=== PATIENT | female | born 1980 | race Caucasian/White ===

== ENCOUNTER 2022-11-16 20:06 | Emergency (ER) | payer BC ==
--- NOTE | 2022-11-16 20:21 | ED ---
General Adult HPI - General Source: patient Mode of arrival: ambulatory Limitations: no limitations <Doni Olivo - Last Filed: 11/16/22 20:20> - General Source: patient, RN notes reviewed Mode of arrival: ambulatory Limitations: no limitations <Vanessa Alvarez - Last Filed: 11/16/22 23:02> - General Chief complaint: Skin/Abscess/Foreign Body Stated complaint: cyst Time Seen by Provider: 11/16/22 20:20 - History of Present Illness Initial comments: 42-year-old female presenting with chief complaint of a labial cyst. Symptoms present since Thursday. (Doni Olivo) 42-year-old female presents emergency department chief complaint abscess on genital area. She states that she noticed this on Thursday but it has become increasingly painful over the last 2 days. She states that it is painful to sit. She has not noticed any drainage from the area. Denies fever, chills, nausea, vomiting. (Vanessa Alvarez) - Related Data Previous Rx's Medication Instructions Recorded Cephalexin [Keflex] 500 mg PO Q12HR 7 Days #14 cap 11/16/22 Sulfamethox-Tmp 800-160Mg [Bactrim 1 each PO Q12HR #14 tab 11/16/22 Ds] Allergies Allergy/AdvReac Type Severity Reaction Status Date / Time Penicillins AdvReac Rash/Hives Verified 11/16/22 20:22 Review of Systems ROS Other: All systems not noted in ROS Statement are negative. <Doni Olivo - Last Filed: 11/16/22 20:20> ROS Other: All systems not noted in ROS Statement are negative. <Vanessa Alvarez - Last Filed: 11/16/22 23:02> ROS Statement: Those systems with pertinent positive or pertinent negative responses have been documented in the HPI. General Exam <Doni Olivo - Last Filed: 11/16/22 20:20> Limitations: no limitations General appearance: alert, in no apparent distress Head exam: Present: atraumatic, normocephalic, normal inspection Eye exam: Present: normal appearance ENT exam: Present: normal exam, mucous membranes moist Respiratory exam: Present: normal lung sounds bilaterally. Absent: respiratory distress, wheezes, rales, rhonchi, stridor Cardiovascular Exam: Present: regular rate, normal rhythm, normal heart sounds. Absent: systolic murmur, diastolic murmur, rubs, gallop, clicks External exam: Present: swelling, other (abscess to left labial area ) Extremities exam: Present: normal inspection Back exam: Present: normal inspection Neurological exam: Present: alert, oriented X3 Psychiatric exam: Present: normal affect, normal mood Skin exam: Present: warm, dry, intact, normal color. Absent: rash <Vanessa Alvarez - Last Filed: 11/16/22 23:02> - General Exam Comments Initial Comments: Visual Physical Exam Vital signs reviewed General: Well-appearing, nontoxic, no acute distress. Head: Normocephalic, atraumatic Eyes: PERRLA, EOMI ENT: Airway patent Chest: Nonlabored breathing Skin: No visual rash, normal skin tone Neuro: Alert and oriented 3 Musculoskeletal: No gross abnormalities (Doni Olivo) Course Vital Signs 11/16/22 20:20 Temperature 97.7 F Pulse Rate 96 Respiratory 18 Rate Blood Pressure 179/104 O2 Sat by Pulse 100 Oximetry Procedures - Incision & Drainage Consent Obtained: verbal consent Site: vulva/vagina Anesthetic Used: lidocaine 1% I&D Cleaning Method: Alcohol Wipe Sterile Field Used?: No I&D Drainage Obtained: Pus, Blood Loculation Noted: probing needed to break Culture Obtained?: Yes <Vanessa Alvarez - Last Filed: 11/16/22 23:02> Medical Decision Making <Vanessa Alvarez - Last Filed: 11/16/22 23:02> - Medical Decision Making Was pt. sent in by a medical professional or institution (AMRITA Mendoza, RESEARCH PHYSIOLOGIST, urgent care, hospital, or halfway...) When possible be specific @ -[No] Did you speak to anyone other than the patient for history (EMS, parent, family, police, friend...)? What history was obtained from this source @ -[No] Did you review nursing and triage notes (agree or disagree)? Why? @ -[I reviewed and agree with nursing and triage notes] Were old charts reviewed (outside hosp., previous admission, EMS record, old EKG, old radiological studies, urgent care reports/EKG's, halfway records)? Report findings @ -[No old charts were reviewed] Differential Diagnosis (chest pain, altered mental status, abdominal pain women, abdominal pain men, vaginal bleeding, weakness, fever, dyspnea, syncope, headache, dizziness, GI bleed, back pain, seizure, CVA, palpatations, mental health, musculoskeletal)? @ -[bartholin abscess, cyst, STDs, this list is not all inclusive] EKG interpreted by me (3pts min.). @ -[none] X-rays interpreted by me (1pt min.). @ -[None done] CT interpreted by me (1pt min.). @ -[None done] U/S interpreted by me (1pt. min.). @ -[None done] What testing was considered but not performed or refused? (CT, X-rays, U/S, labs)? Why? @ -[None] What meds were considered but not given or refused? Why? @ -[None] Did you discuss the management of the patient with other professionals (professionals i.e. , PA, RESEARCH PHYSIOLOGIST, lab, RT, psych nurse, nursing home social worker, skin care specialist, teacher, student officer, watch case polisher)? Give summary @ -[No] Was smoking cessation discussed for >3mins.? @ -[No] Was critical care preformed (if so, how long)? @ -[No] Were there social determinants of health that impacted care today? How? (Homelessness, low income, unemployed, alcoholism, drug addiction, transportation, low edu. Level, literacy, decrease access to med. care, penitentiary, rehab)? @ -[No] Was there de-escalation of care discussed even if they declined (Discuss DNR or withdrawal of care, Hospice)? DNR status @ -[No] What co-morbidities impacted this encounter? (DM, HTN, Smoking, COPD, CAD, Cancer, CVA, ARF, Chemo, Hep., AIDS, mental health diagnosis, sleep apnea, morbid obesity)? @ -[None] Was patient admitted / discharged? Hospital course, mention meds given and route, prescriptions, significant lab abnormalities, going to OR and other pertinent info. @ -[discharged. Jenn] Undiagnosed new problem with uncertain prognosis? @ -[No] Drug Therapy requiring intensive monitoring for toxicity (Heparin, Nitro, Insulin, Cardizem)? @ -[No] Were any procedures done? @ -[No] Diagnosis/symptom? @ -[Bartholin abscess] Acute, or Chronic, or Acute on Chronic? @ -[acute] Uncomplicated (without systemic symptoms) or Complicated (systemic symptoms)? @ -[uncomplicated] Side effects of treatment? @ -[No] Exacerbation, Progression, or Severe Exacerbation? @ -[No] Poses a threat to life or bodily function? How? (Chest pain, [place], [place], pneumonia, PE, COPD, DKA, ARF, appy, cholecystitis, CVA, Diverticulitis, Homicidal, Suicidal, threat to staff... and all critical care pts) @ -[No] (Vanessa Alvarez) Disposition <Doni Olivo - Last Filed: 11/16/22 20:20> Is patient prescribed a controlled substance at d/c from ED?: No <Vanessa Alvarez - Last Filed: 11/16/22 23:02> Clinical Impression: Bartholin's gland abscess Disposition: HOME SELF-CARE Condition: Stable Instructions (If sedation given, give patient instructions): Abscess (ED) Additional Instructions: Follow up with gynecology. grinder set up operator surface antibiotics and take to completion. Return to the emergency department for new or worsening symptoms. Prescriptions: Sulfamethox-Tmp 800-160Mg [Bactrim Ds] 1 each PO Q12HR #14 tab Cephalexin [Keflex] 500 mg PO Q12HR 7 Days #14 cap Referrals: None,Stated [Primary Care Provider] - 1-2 days Mary Ruiz, [Doctor of Osteopathic Medicine] - 1-2 days
[2022-11-16 20:25] VITALS: TEMP 97.7
[2022-11-16] MEDS ORDERED: LIDOCAINE 1% INJ 10MG/ML (20 ML MDV) SQ ONE (21:23)
[2022-11-16] MEDS ORDERED: CEPHALEXIN 500 MG CAP PO STA (22:49)
[2022-11-16] MEDS ORDERED: SULFAMETHOX-TMP 800-160MG 1 EACH TAB PO STA (22:49)
[2022-11-16] MEDS ORDERED: ACET/COD 300 MG/30 MG STARTER PACK 6 TAB BTL PO STA (22:50)
[2022-11-16] MEDS ORDERED: IBUPROFEN 600 MG STARTER PACK 4 TAB BTL PO STA (22:50)
[2022-11-16 23:36] VITALS: BP 133/93; PULSE 101; RESP 20
== END 2022-11-16 23:35 | disposition home or self-care (01) ==
LOC: EC 20:06
DX: N75.1 Abscess of Bartholin's gland (principal)
CPT/HCPCS: 87070; 87205; 99283; 56405; J2001